=== PATIENT | male | born 2000 | race African-American/Black ===

== ENCOUNTER 2020-12-28 14:00 | Outpatient (RCR) | payer OTHER, SELFPAY ==
--- NOTE | 2020-11-20 08:57 | OTOPEVAL ---
OCCUPATIONAL THERAPY INITIAL EVALUATION REPORT 11/20/20 Thank you for referring Joni Goldman to [facility].? The patient is scheduled to be seen for therapy? 1x/week for 5 weeks. Please review, sign, date and return this plan of care MONICA. I agree with and certify that the following plan of care is medically necessary. Referring Physician Date Referring Provider: Estela Gonzalez MD *OT Outpatient Evaluation Start: 11/20/20 07:55 Evaluation Information Problem Subjective Information Pt's caregiver is with him Query Text:As Reported By Patient/ today reporting on what has Family been difficult for him lately. He states that Joni has difficulties with manipulating doors/locks, belts, and holding a toothbrush. He also notes difficulties with taking notes. Previous Treatments Previous Treatments For This Problem Has had OT ~10 years ago. Prior Level of Function Activity Level (Last 3 Months) Occupation Student Hand Dominance Right Activity of Daily Living Ability Independent Indoor/Home Mobility Independent Cooking Yes Comments Additional Prior Level of Function Patient lives with his parents Comments and sibling. He takes classes at a community college. He is currently independent with ADLs, but does have a fear of water from childhood trauma. They are working on getting him to shower more often. Pain Assessment Timing of Pain Assessment Timing of Pain Assessment Assessment Self Report Self Report Pain Level 0 Pain Score Pain Score 0: Self Report Upper Extremity Range of Motion General Upper Extremity Range of Motion Reason Not Measured WNL/Left,WNL/Right Upper Extremity Muscle Strength Testing Scapular/Shoulder Bilateral Shoulder Flexion Strength 5 Normal Shoulder Extension Strength 5 Normal Shoulder Abduction Strength 5 Normal Shoulder Adduction Strength 5 Normal Elbow/Forearm Bilateral Elbow Flexion Strength 5 Normal Elbow Extension Strength 5 Normal Forearm Pronation Strength 5 Normal Forearm Supination Strength 5 Normal Wrist Strength Bilateral Wrist Flexion Strength 5 Normal Wrist Extension Strength 5 Normal Hand Senior Marketing Coordinator/Pinch Strength Assessment Hand Left Senior Marketing Coordinator Strength (lbs) 90.33 Lateral Pinch Strength (lbs) 22.33 Palmar Pinch Strength (lbs) 16.33 Tip Pinch Strength (lbs) 10.33 Hand Senior Marketing Coordinator/Pinch Strength Comments Norms (L):
--- NOTE | 2020-12-13 14:04 | PCOTNOTE ---
Patient called & cancelled scheduled appointment this date due to illness on 12/13/2020.
--- NOTE | 2020-12-28 14:56 | OTOPEVAL ---
OCCUPATIONAL THERAPY RE-EVALUATION REPORT AND D/C NOTE Joni presents today for OT re-evaluation. He has made excellent functional progress with writing, manipulating locks, and especially improved self awareness with body mechanics during functional activities. He presented today with better posture, improved movement quality during functional reaching/lifting/manipulation, and reports being really happy with how well he is doing functionally. He and his dad are independent with his HEP. Recommend that his dad continue to help cue him with body mechanics during ADLs as needed and to taper off once Joni is independent with self-cuing. Discharging today with patient and patient's dad independent with all materials and in agreement with discharge. Thank you for referring Joni Goldman to [facility]. Please review, sign, date and return this D/C Note MONICA. I agree with and certify that the following plan of care is medically necessary. Referring Physician Date Referring Provider: Estela Gonzalez MD *OT Outpatient Evaluation Start: 11/20/20 07:55 Freq: Status: Active Protocol: Document 12/28/20 13:58 ENDY (Rec: 12/28/20 14:56 ENDY [id number]) Therapy Assessment Status Assessment Status Assessment Status Re-evaluation Evaluation Information Problem Diagnosis Decreased coordination Additional Evaluation Detail Joni has participated in outpatient OT 1x/week since 11/20/20 for a total of 4 sessions and today's reassessment. OT has been focusing on distal UE strengthening (forearms, wrists, and hands/fingers) as well has a heavy focus on body mechanics and not overusing larger, proximal muscles for distal fine motor work. Subjective Information Joni reports improvements Query Text:As Reported By Patient/ with functional use of his Family hands since beginning OT. Today he reports having better handwriting when taking noes at school, reports no longer having difficulties with manipulating doors/locks, or holding a toothbrush. Pt's dad today states he has difficulty being thorough with brushing his teeth. Joni's dad is with him today and reports really noticing a difference in Joni's function with ADLs and states he is really happy with his progress . P
== END 2020-12-31 10:34 | disposition home or self-care (01) ==
LOC: ANHOT 14:00
PROVIDERS: PCP Family Medicine; Referring Provider Family Medicine; Visit Provider Family Medicine
DX: F84.0 Autistic disorder (principal); R27.8 Other lack of coordination
CPT/HCPCS: 97110; 97166

== ENCOUNTER 2022-10-11 12:31 | Emergency (ER) | payer BC, SELFPAY ==
[2022-10-11 12:45] VITALS: BP 125/68; PULSE 92; RESP 16; TEMP 36.9; O2SAT 100
--- NOTE | 2022-10-11 13:13 | ED.EAR ---
HPI - Ear Problem General Chief complaint: Ear Stated complaint: fb ear Time Seen by Provider: 10/11/22 13:14 Source: patient, family, RN notes reviewed and old records reviewed Mode of arrival: ambulatory Limitations: no limitations History of Present Illness HPI Narrative: 22 year old male accompanied by father with stated concern that plastic off of ear cleansing system is stuck in ear canal. Father reports that they were trying a new ear cleansing apparatus and plastic piece came up missing. Father reports that son has problems with ear wax and his hearing has been bothering him lately. Patient denies any ear pain at this time states he just can't hear well, has problems with wax.Patient has been COVID and Flu vaccinated. On examination of ears no foreign body noted just cerumen impactions MD Complaint: decreased hearing and foreign body (concern for) Location: right ear Discharge from ear: Reports no Treatment prior to arrival: attempt at ear wax removal Related Data Home Medications Medication Instructions Recorded Confirmed aripiprazole 10 mg tablet 10 mg PO DAILY 11/01/20 10/11/22 lamotrigine 200 mg tablet 200 mg PO DAILY 11/01/20 10/11/22 sertraline 100 mg tablet 100 mg PO DAILY 11/01/20 10/11/22 quetiapine 300 mg tablet 150 mg PO QHS 09/17/21 10/11/22 Allergies Allergy/AdvReac Type Severity Reaction Status Date / Time No Known Allergies Allergy Verified 09/18/22 09:41 Review of Systems Review of Systems: CONSTITUTIONAL: Denies fever, chills, or sweats. EYES: Denies visual changes, redness, or discharge. ENT: Denies rhinorrhea, congestion, sore throat, or otalgia, reports can't hear CARDIOVASCULAR: Denies chest pain, palpitations, or edema. RESPIRATORY: Denies cough or dyspnea. GASTROINTESTINAL: Denies abdominal pain, nausea, vomiting, or diarrhea. GENITOURINARY: Denies dysuria or hematuria. SKIN: Denies rash or itching. MUSCULOSKELETAL: Denies back pain, joint pain, or myalgia. NEUROLOGIC: Denies headache, numbness, or weakness. PSYCHIATRIC: Reports history of anxiety or depression. All systems reviewed & are unremarkable except as noted in HPI and below PMFSH Past Medical History Medical History (Updated 10/13/22 @ 16:30 by Rula Mckenzie NP) Anxiety and depression Autism Mixed hyperlipidemia Obstructive sleep apnea syndrome Self-care deficit for bathing and hygiene Vitamin D deficiency Wax in ear Surgical History Surgical History Hx of hammer toe correction Family History Family History Father Family history of alcoholism Mother Family history of development disorder Social History Social History (Updated 09/18/22 @ 09:47 by Doris Morris GRADUATE RN) Smoking status: Never smoker Second hand tobacco smoke exposure: No Alcohol intake: never Substance use: unknown Substance use type: does not use Lack of Transportation: No Lack of Food: Never True Current Housing: I Have Housing Concerned About Future Housing: No Difficulty Paying Gas/Electric Bills: No Difficulty Paying for Meds: No Currently Unemployed: YES Education: Associate Degree Difficulty w/ Childcare or Family Care: No Living arrangements: with family Occupation/Education: student Gender identity (if verbalized by the patient): Male Spiritual care concerns: No Agree to blood products: Yes Comments At time of signature, agree with nursing past medical, surgical, social and family history. There is no relevant family history pertinent to the presenting complaint Exam Narrative: GENERAL: Well-appearing, well-nourished, and in no acute distress. HEAD: Normocephalic, atraumatic. EYES: PERRLA and EOMI. ENT: Nares clear, no rhinorrhea or epistaxis. Mucous membranes moist.TM's completely occluded with dark wax, after cleansing TM's noted to be pearly bonilla with good light reflex, thr
== END 2022-10-11 13:35 | disposition home or self-care (01) ==
PROVIDERS: Emergency Provider Registered Nurse; PCP Family Medicine
DX: H61.23 Impacted cerumen, bilateral (principal); F84.0 Autistic disorder; E78.2 Mixed hyperlipidemia; F41.9 Anxiety disorder, unspecified; F32.A Depression, unspecified
CPT/HCPCS: 69209; 99211; 99212; A9270; G0463